=== PATIENT | male | born 1990 | race Caucasian/White ===

== ENCOUNTER 2021-05-24 18:37 | Emergency (ER) | payer OTHER ==
[~2021-05-24] VITALS: Ht 172.7 cm; Wt 89.1 kg
[2021-05-24 19:08] VITALS: BP 135/80
--- NOTE | 2021-05-24 19:13 | NUR ---
PT TO WAIT IN LOBBY
[2021-05-24] MEDS ORDERED: NAPR-54 PO (19:56)
--- NOTE | 2021-05-24 20:15 | NUR ---
pts middle anf ring finger ab taped. pts [facility] wnl.
[2021-05-24 20:38] VITALS: BP 135/80
== END 2021-05-24 20:38 | disposition home or self-care (01) ==
LOC: MED 18:37
DX: S62.634A Displaced fracture of distal phalanx of right ring finger, initial encounter for closed fracture (principal); X58.XXXA Exposure to other specified factors, initial encounter; Y93.89 Activity, other specified; Y92.89 Other specified places as the place of occurrence of the external cause; Y99.8 Other external cause status
CPT/HCPCS: 73140; 99283

== ENCOUNTER 2022-01-29 15:31 | Emergency (ER) | payer OTHER ==
[~2022-01-29] VITALS: Ht 175.3 cm; Wt 86.2 kg
[~2022-01-29 15:31] MED LIST: NAPR-54 PO
[2022-01-29 15:32] VITALS: BP 120/79
[2022-01-29] MEDS ORDERED: PROM118S5 PO (16:48)
[2022-01-29] MEDS ORDERED: NAPR-54 PO (16:48)
[2022-01-29] MEDS ORDERED: PENI500T20 PO (16:48)
[2022-01-29 16:54] VITALS: BP 118/77
== END 2022-01-29 16:52 | disposition home or self-care (01) ==
LOC: MED 15:31
DX: B34.9 Viral infection, unspecified (principal)
CPT/HCPCS: 71045; 99283